=== PATIENT | female | born 2000 | race Caucasian/White ===

== ENCOUNTER 2020-07-10 02:32 | Outpatient (CLI) | payer OTHER, SELFPAY ==
[2020-07-11 04:30] LABS: COVID-19 RT-PCR UVMMC Result Positive (Negative)
== END 2020-07-10 02:33 | disposition home or self-care (01) ==
PROVIDERS: PCP Pediatrics; Visit Provider Nurse Practitioner Family
DX: Z20.822 Contact with and (suspected) exposure to COVID-19 (principal)
CPT/HCPCS: U0003

== ENCOUNTER 2024-08-24 11:00 | Outpatient (CLI) | payer SELFPAY ==
[2024-08-24 08:38] LABS: AST 789 U/L (15-37); Albumin 3.8 g/dL (3.4-5.0); Alkaline Phosphatase 101 U/L (46-116); Anion Gap 11.7 mmol/L (3-11); BUN 14 mg/dL (7-18); Bilirubin, Total 1.4 mg/dL (0.2-1.0); CO2 27.3 mmol/L (21.0-32.0); Calcium 9.7 mg/dL (8.5-10.1); Chloride 99 mmol/L (98-107); Estimated GFR 80.18 (mL/min/1.73m2); Glucose 89 mg/dL (74-106); Sodium 138 mmol/L (136-145); Total Protein 8.2 g/dL (6.4-8.2)
[2024-08-24 09:01] LABS: ALT 1779 U/L (14-59)
== END 2024-08-24 11:01 | disposition home or self-care (01) ==
LOC: LBO 11:04
PROVIDERS: PCP Pediatrics; Visit Provider Registered Nurse
DX: R79.89 Other specified abnormal findings of blood chemistry (principal)
CPT/HCPCS: 36415; 80053